=== PATIENT | male | born 1990 | race Hispanic/Latino ===

== ENCOUNTER 2017-07-26 10:37 | Emergency (ER) | payer OTHER ==
[2017-07-26] MEDS ORDERED: Lidocaine 1% 20 ML MDV ONE (10:40)
[2017-07-26] MEDS ORDERED: Bacitracin Zinc 1 Packet ONE ×2 (10:43→11:48)
[2017-07-26] MEDS ORDERED: Adacel (T-DAP) 0.5 ML VIAL ONE (11:13)
--- NOTE | 2017-07-26 11:33 | RAD ---
INDEX DIGIT RIGHT HAND 2 VIEW: Date: 07/26/17 INDICATION: Injury, pain. FINDINGS: There is a linear lucency of the distal soft tissues of the right index digit compatible with lacerat ion. No discrete fracture plane is seen within the underlying distal phalanx. IMPRESSION: Soft tissue injury of the distal right index digit without underlying fracture identified. POS: [facility]
[2017-07-26] MEDS ORDERED: Ibuprofen 800 MG TAB ONE (12:01)
== END 2017-07-26 12:02 | disposition home or self-care (01) ==
LOC: NAV ERS 10:37
DX: S61.210A Laceration without foreign body of right index finger without damage to nail, initial encounter (principal); W26.8XXA Contact with other sharp object(s), not elsewhere classified, initial encounter; Y92.69 Other specified industrial and construction area as the place of occurrence of the external cause
CPT/HCPCS: 12002; 80305; 90471; 90715; G0477; J2001